=== PATIENT | female | born 1980 | race Caucasian/White ===

== ENCOUNTER 2019-05-05 15:17 | Emergency (ER) | payer OTHER ==
[~2019-05-05] VITALS: Ht 172.7 cm; Wt 74.8 kg
[2019-05-05] MEDS ORDERED: KEFLEX500 M1 PO (15:55)
[2019-05-05 15:58] VITALS: BP 132/78
== END 2019-05-05 15:59 | disposition home or self-care (01) ==
LOC: M.ERS 15:17
DX: J01.00 Acute maxillary sinusitis, unspecified (principal)